=== PATIENT | male | born 1955 | race Caucasian/White ===

== ENCOUNTER 2023-02-18 17:17 | Emergency (ER) | payer MEDICARE ==
[~2023-02-18] VITALS: Ht 162.5 cm; Wt 78.0 kg
[2023-02-18] MEDS ORDERED: MELOXICAM15 MG PO (19:47)
== END 2023-02-18 19:59 | disposition home or self-care (01) ==
LOC: ED 17:17 → EDBD 17:22 → ED 17:22
DX: S93.601A Unspecified sprain of right foot, initial encounter (principal); I25.10 Atherosclerotic heart disease of native coronary artery without angina pectoris; W20.8XXA Other cause of strike by thrown, projected or falling object, initial encounter; Y93.89 Activity, other specified; Y92.89 Other specified places as the place of occurrence of the external cause; Y99.8 Other external cause status